=== PATIENT | male | born 1955 | race Caucasian/White ===

== ENCOUNTER → 2020-01-19 | Outpatient (CLI) | payer MEDICARE, OTHER ==
--- NOTE | 2020-01-19 09:09 | RADIOLOGY REPORT (SQ) ---
EXAM DESCRIPTION: U/S ABD AORTIC SCREENING IMAGES COMPLETED DATE/TIME: 01/19/2020 8:21 am REASON FOR STUDY: ENCOUNTER FOR SCREENING FOR CARDIOVASCULAR DISORDERS Z87.891 PERSONAL HISTORY OF NICOTINE DEPENDENCE Z87 PERSONAL HISTORY OF OTHER DISEASES AND CONDIT * DO NOT U COMPARISON: None. TECHNIQUE: Static and dynamic grayscale images acquired of the aorta and stored on PACs. Selected co jess Doppler and spectral images recorded. LIMITATIONS: None. FINDINGS: AORTIC CALIBER MAXIMAL PROXIMAL: 2.8 x 2.6 cm. MID: 2.3 x 2.4 cm. DISTAL: 2.7 x 2.5 cm. ILIAC DIAMETER RIGHT: 1.4 x 1.5 cm. LEFT: 1.2 x 1.3 cm. OTHER: Scattered calcified plaque throughout. IMPRESSION: No focal aneurysmal dilatation. See below for recommended follow-up. COMMENT: Aortic aneurysm imaging followup: 2.6-2.9 cm Every 5 years* *Based upon the Society for Vascular Surgery Guidelines: J Vasc Surg. 2009 Oct;50(4 Suppl):S2-49 *For aortas of maximum diameter of 2.6-2.9 cm meeting the criteria for AAA (?1.5 x proximal normal se gment) TECHNICAL DOCUMENTATION: JOB ID: [id number] 2010 [employer]- All Rights Reserved Reading location - IP/workstation name: [email or web address]
--- NOTE | 2020-01-19 10:12 | RADIOLOGY REPORT (SQ) ---
EXAM DESCRIPTION: CT LUNG CANCER SCREENING IMAGES COMPLETED DATE/TIME: 01/19/2020 8:12 am REASON FOR STUDY: Z87.891 PERSONAL HISTORY OF NICOTINE DEPENDENCE Z87.891 PERSONAL HISTORY OF NICOT INE DEPENDENCE Z87 PERSONAL HISTORY OF OTHER DISEASES AND CONDIT * DO NOT U Has the patient had a Chest CT scan within the past year? N Was the patient offered tobacco cessation counseling? Y Was the patient engaged in shared decision making for this test? Y Does the patient have signs or symptoms of Lung Cancer? N Is the patient a smoker? Y How many pack years? 58 How many years since quitting smoking? 0 Patients age: 70 COMPARISON: Chest x-ray dated 05/23/2013 TECHNIQUE: Low Dose CT scan performed of the chest without intravenous contrast for purposes of scre ening for lung cancer. Images reviewed with lung, soft tissue and bone windows. Reconstructed coron al and sagittal MPR images reviewed. All images stored on PACS. All CT scanners at this facility use dose modulation, iterative reconstruction, and/or weight based d osing when appropriate to reduce radiation dose to as low as reasonably achievable (ALARA). [facility]: Dose Right [facility]: CareDose [facility]: Dose Right [facility]: Teradose 4D [facility]: Smart Violin Memory RADIATION DOSE: CT Rad equipment meets quality standard of care and radiation dose reduction techniq ues were employed. CTDIvol: NaN mGy. DLP: 0 mGy-cm. mGy. . LIMITATIONS: No technical limitations. FINDINGS: LUNG NODULES: Description: Subpleural nodule in the right lower lobe. This is best demo nstrated on series 3, image 176. Size: 4.0 mm REMAINING LUNGS AND PLEURA: No pleural effusions or calcifications. No pneumothorax. No scarrin g or interstitial changes. HILAR AND MEDIASTINAL STRUCTURES: No identified masses. No abnormal nodes. HEART AND VASCULAR STRUCTURES: No aortic aneurysm. No pericardial effusion. No cardiac devices. CORONARY ARTERY CALCIFICATIONS: No significant calcifications. UPPER ABDOMEN: No significant findings. THYROID AND OTHER SOFT TISSUES: No masses. No adenopathy. BONES: No significant finding. OTHER: No other significant findings. IMPRESSION: BENIGN FINDINGS IN THE LUNGS. NO OTHER CLINICALLY SIGNIFICANT/POTENTIALLY CLINICALLY SIGNIFICANT FINDINGS LUNGRADS: LUNGRADS: 2 BENIGN APPEARANCE OR BEHAVIOR. NODULES WITH A VERY LOW LIKELIHOOD OF BECOMIN G A CLINICALLY ACTIVE CANCER DUE TO SIZE OR LACK OF GROWTH. MODIFIER: NONE. RECOMMENDATION: Continue annual screening with LDCT in 12 months. COMMENT: CRITERIA: Solid nodule(s): < 6 mm; new < 4 mm. Part solid nodule(s): < 6 mm total diameter on baseline screening. Non solid nodule(s) (GGN): < 20 mm OR ? 20 and unchanged or slowly growing. Category 3 or 4 nodules unchanged for ? 3 months. TECHNICAL DOCUMENTATION: JOB ID: [id number] Quality ID # [id number]: Final reports with documentation of one or more dose reduction techniques (e.g., Au tomated exposure control, adjustment of the mA and/or kV according to patient size, use of iterative reconstruction technique) 2010 [facility], [place] Rad[facility] Reading location - IP/workstation name: [email or web address]
== END ==
LOC: RAD 07:48
PROVIDERS: ATTEND Nurse Practitioner Adult Health
DX: Z12.2 Encounter for screening for malignant neoplasm of respiratory organs (principal); Z13.6 Encounter for screening for cardiovascular disorders; Z87.891 Personal history of nicotine dependence
CPT/HCPCS: 76706; G0297

== ENCOUNTER 2020-03-01 12:51 | Emergency (ER) | payer MEDICARE, OTHER ==
--- NOTE | 2020-03-01 13:25 | ER Document Report ---
ED Medical Screen (RME) - General Chief Complaint: Chest Pain Stated Complaint: CHEST PAIN Time Seen by Provider: 03/01/20 12:56 Primary Care Provider: KANA WONG NP-C [Primary Care Provider] - Follow up as needed Mode of Arrival: Ambulatory Information source: Patient Notes: Patient with right sided chest pain/epigastric pain. Radiates to right neck and straight through to back. Has been intermittent over the last few weeks, worse with food. Denies N/V/SOB. Denies hx of [place]. Exam: Lung sounds clear and equal. No pain with palpation to chest wall. I have greeted and performed a rapid initial assessment of this patient. A comprehensive ED assessment and evaluation of the patient, analysis of test results and completion of the medical decision making process will be conducted by additional ED providers. I have specifically instructed the patient or family members with the patient to immediately return to any nursing staff should anything change in the patient's condition or with their chief complaint. Past Medical History - Immunizations Hx Diphtheria, Pertussis, Tetanus Vaccination: Yes Physical Exam - Vital signs Vitals: Temp Pulse Resp BP Pulse Ox 98.0 F 90 16 158/81 H 98 03/01/20 13:08 03/01/20 13:08 03/01/20 13:08 03/01/20 13:08 03/01/20 13:08 Course - Vital Signs Vital signs: Temp Pulse Resp BP Pulse Ox 98.0 F 90 16 158/81 H 98 03/01/20 13:08 03/01/20 13:08 03/01/20 13:08 03/01/20 13:08 03/01/20 13:08 Doctor's Discharge - Discharge Referrals: KANA WONG NP-C [Primary Care Provider] - Follow up as needed
--- NOTE | 2020-03-01 13:48 | RADIOLOGY REPORT (SQ) ---
EXAM DESCRIPTION: CHEST 2 VIEWS IMAGES COMPLETED DATE/TIME: 03/01/2020 1:37 pm REASON FOR STUDY: chest pain COMPARISON: 05/23/2013 EXAM PARAMETERS: NUMBER OF VIEWS: two views TECHNIQUE: Digital Frontal and Lateral radiographic views of the chest acquired. RADIATION DOSE: NA LIMITATIONS: none FINDINGS: LUNGS AND PLEURA: Mild chronic interstitial changes. No acute infiltrate, effusion, or ma ss. MEDIASTINUM AND HILAR STRUCTURES: No masses or contour abnormalities. HEART AND VASCULAR STRUCTURES: Heart normal size. No evidence for failure. BONES: No acute findings. HARDWARE: None in the chest. OTHER: No other significant finding. IMPRESSION: Mild chronic lung changes with no acute cardiopulmonary findings. TECHNICAL DOCUMENTATION: JOB ID: [id number] 2010 [employer]- All Rights Reserved Reading location - IP/workstation name: [email or web address]
[2020-03-01 14:13] LABS: ABSOLUTE EOSINOPHILS # (AUTO) 0.2 10^3/uL (0.0-0.6); ABSOLUTE MONOCYTES (AUTO) 0.5 10^3/uL (0.1-1.4); ABSOLUTE NEUT (AUTO) 2.4 10^3/uL (1.7-8.2); BASOPHILS % (AUTO) 0.4 % (0-2); EOSINOPHILS % (AUTO) 3.9 % (0-6); HEMATOCRIT 40.6 % (37.9-51.0); LYMPHOCYTES % (AUTO) 38.9 % (13-45); MEAN CORPUSCULAR HEMOGLOBIN 29.6 pg (27.0-33.4); MEAN CORPUSCULAR HGB CONC 34.5 g/dL (32.0-36.0); MEAN CORPUSCULAR VOLUME 86 fl (80-97); MONOCYTES % (AUTO) 10.2 % (3-13); PLATELET COUNT 150 10^3/uL (150-450); RED BLOOD COUNT 4.74 10^6/uL (4.35-5.55); RED CELL DISTRIBUTION WIDTH 13.2 % (11.5-14.0); SEGMENTED NEUTROPHILS % (AUTO) 46.6 % (42-78); TOTAL CELLS COUNTED % (AUTO) 100 %; WHITE BLOOD COUNT 5.2 10^3/uL (4.0-10.5)
[2020-03-01 14:34] LABS: ALBUMIN 4.2 g/dL (3.5-5.0); ALKALINE PHOSPHATASE 80 U/L (38-126); ANION GAP 9 (5-19); ASPARTATE AMINO TRANSFERASE 32 U/L (17-59); BILIRUBIN,DIRECT 0.3 mg/dL (0.0-0.4); BILIRUBIN,TOTAL 0.8 mg/dL (0.2-1.3); BLOOD UREA NITROGEN 16 mg/dL (7-20); CALCIUM 9.6 mg/dL (8.4-10.2); CARBON DIOXIDE 28 mmol/L (22-30); CHLORIDE 102 mmol/L (98-107); GLUCOSE 119 mg/dL (75-110); POTASSIUM 4.1 mmol/L (3.6-5.0); TOTAL PROTEIN 6.9 g/dL (6.3-8.2)
--- NOTE | 2020-03-01 14:38 | RADIOLOGY REPORT (SQ) ---
EXAM DESCRIPTION: U/S ABDOMEN LIMITED W/O DOP IMAGES COMPLETED DATE/TIME: 03/01/2020 2:28 pm REASON FOR STUDY: chest pain/epigastric pain COMPARISON: None. TECHNIQUE: Dynamic and static grayscale images acquired of the abdomen and recorded on PACS. Additio nal selected color Doppler and spectral images recorded. LIMITATIONS: None. FINDINGS: PANCREAS: Not seen. LIVER: No masses. Echotexture normal. LIVER VASCULATURE: Normal directional flow of the main portal vein and hepatic veins. GALLBLADDER: No stones. Normal wall thickness. No pericholecystic fluid. ULTRASOUND-DETECTED DURANT'S SIGN: Negative. INTRAHEPATIC DUCTS AND COMMON DUCT: CBD and intrahepatic ducts normal caliber. No filling defects. AORTA: No aneurysm. RIGHT KIDNEY: Normal size, 12.5 cm. Normal echogenicity. No solid or suspicious masses. No hydroneph rosis. No calcifications. PERITONEAL AND RIGHT PLEURAL SPACE: No ascites or effusions. OTHER: No other significant findings. IMPRESSION: NORMAL RIGHT UPPER QUADRANT ULTRASOUND. TECHNICAL DOCUMENTATION: JOB ID: [id number] 2010 [employer]- All Rights Reserved Reading location - IP/workstation name: [email or web address]
[2020-03-01 17:09] LABS: APPEARANCE,URINE CLEAR; BILIRUBIN,URINE NEGATIVE (NEGATIVE); COLOR,URINE STRAW; GLUCOSE, URINE NEGATIVE (NEGATIVE); KETONES,URINE NEGATIVE (NEGATIVE); LEUKOCYTE ESTERASE,URINE NEGATIVE (NEGATIVE); NITRITE,URINE NEGATIVE (NEGATIVE); PROTEIN,URINE NEGATIVE (NEGATIVE); URINE SPECIFIC GRAVITY 1.005; UROBILINOGEN,URINE NEGATIVE mg/dL (<2.0)
--- NOTE | 2020-03-01 19:45 | ER Document Report ---
ED Cardiac - General Mode of Arrival: Ambulatory <STEVEN DAO - Last Filed: 03/01/20 20:09> <LOIS JEFFRIES - Last Filed: 03/01/20 20:49> - General Chief Complaint: Chest Pain Stated Complaint: CHEST PAIN Time Seen by Provider: 03/01/20 12:56 Primary Care Provider: KANA WONG NP-C [NO LOCAL MD] - Follow up as needed Notes: 64-year-old male with past medical history of hypertension, hyperlipidemia, anxiety presenting today with intermittent right-sided chest pain and right upper quadrant pain. He states the intermittent chest pain has occurred twice both of and after eating. States that the episodes last for approximately 30 minutes and feels like a squeezing sensation which ultimately relax. The pain will occasionally radiate up towards his neck into his back. He says he is taking Tums for this which is helped to expedite the relief of his symptoms. He also has some right-sided upper quadrant pain after eating. This pain is been intermittent for an unspecified amount of time. Worse in the last 2 weeks. He describes as more as of a dull ache. It is not sharp or stabbing. When the pain occurs he denies diaphoresis. He states he is flushed at times. He does have a history of breaking his sternum when he was in high school. He does not have a history of [place] or stroke. He takes a daily aspirin. He is not follow-up with a cylinder die machine helper. Is currently not a smoker. He quit 6 years ago. He occasionally has lower leg swelling. He states his legs are not swollen at this time. Has chest pressure when he is leaning forward. (STEVEN DAO) Past Medical History - General Information source: Patient - Social History Smoking Status: Unknown if Ever Smoked Family History: Other - Immunizations Hx Diphtheria, Pertussis, Tetanus Vaccination: Yes <STEVEN DAO - Last Filed: 03/01/20 20:09> Review of Systems - Review of Systems Constitutional: No symptoms reported EENT: No symptoms reported Cardiovascular: See HPI Respiratory: No symptoms reported Gastrointestinal: See HPI Genitourinary: No symptoms reported Male Genitourinary: No symptoms reported Musculoskeletal: No symptoms reported Skin: No symptoms reported Hematologic/Lymphatic: No symptoms reported Neurological/Psychological: No symptoms reported <STEVEN DAO - Last Filed: 03/01/20 20:09> Physical Exam - Vital signs Interpretation: Hypertensive. No: Tachycardic, Hypoxic <STEVEN DAO - Last Filed: 03/01/20 20:09> - Vital signs Vitals: Temp Pulse Resp BP Pulse Ox 98.0 F 90 16 158/81 H 98 03/01/20 13:08 03/01/20 13:08 03/01/20 13:08 03/01/20 13:08 03/01/20 13:08 - Notes Notes: Adult General: GENERAL: Alert, interacts well. No acute distress HEAD: Normocephalic, atraumatic EYES: Pupils equal, round and reactive to light. Extraocular movements intact. ENT: Airway patent. Nares patent. NECK: Full range of motion. Supple. Trachea midline. No lymphadenopathy. LUNGS: Clear to auscultation bilaterally, no wheezes, rales, or rhonchi. No respiratory distress. Nontender chest wall. HEART: Regular rate and rhythm. No murmurs, rubs or gallops. Few PVCs ABDOMEN: Soft, nontender. Obese. (-) [place] sign. Bowel sounds present in all 4 quadrants. No rebound, guarding or masses. GENITOURINARY: Deferred EXTREMITIES: Moves all 4 extremities spontaneously. No edema, normal radial and dorsal pedis pulses bilaterally. No cyanosis. BACK: Moves all extremities with full range of motion. NEUROLOGICAL: Alert and oriented x3. Normal speech. Strength 5/ 5 in all extremities. PSYCH: Normal affect, normal mood. SKIN: Warm, dry, normal turgor. No rashes or lesions noted. (STEVEN DAO) Course - Laboratory Result Diagrams: 03/01/20 13:45 03/01/20 13:45 <SYLWIASTEVEN - Last Filed: 03/01/20 20:09> - Laboratory Result Diagrams: 03/01/20 13:45 03/01/20 13:45 <LOIS JEFFRIES - Last Filed: 03/01/20 20:49> - Re-evaluation Re-evalutation: 03/01/20 19:46 History score 0 EKG score 0 Age score 2 Risk Factors score 3 Initial Troponin score 0 Patient's initial troponin was negative. He only has the right upper quadrant discomfort at this time. I am pending a second Troponin. His chest x-ray is negative. His EKG shows PVCs. He states he is never been diagnosed with this before. Has never seen a cylinder die machine helper. His RUQ ultrasound is normal. (STEVEN DAO) 03/01/20 20:47 Patient second troponin is negative. Patient states that he does not feel any better, but states that he does not feel any worse. Since second troponin is unremarkable, and has been multiple hours after his onset of discomfort, likelihood of this being a myocardial infarction is low. Patient is follow-up with Dr. Fabian. Advised him to take Pepcid, as he takes naproxen daily. (LOIS JEFFRIES) - Vital Signs Vital signs: Temp Pulse Resp BP Pulse Ox 98.0 F 90 11 L 142/70 H 96 03/01/20 13:08 03/01/20 13:08 03/01/20 20:01 03/01/20 20:01 03/01/20 20:01 - Laboratory Laboratory results interpreted by me: 03/01/20 13:45 Glucose 119 H - EKG Interpretation by Me Additional EKG results interpreted by me: 03/01/20 19:55 EKG shows sinus rhythm at 86 bpm. Also shows multiple ventricular PVCs. No ST segment elevations or depressions. Qtc of 450 (STEVEN DAO) Discharge <STEVEN DAO - Last Filed: 03/01/20 20:09> <LOIS JEFFRIES - Last Filed: 03/01/20 20:49> - Discharge Clinical Impression: RUQ abdominal pain Chest pain Qualifiers: Chest pain type: unspecified Qualified Code(s): R07.9 - Chest pain, unspecified Condition: Stable Disposition: HOME, SELF-CARE Instructions: Chest Pain of Unclear Cause ([facility]) Additional Instructions: EKG shows PVCs. He has had 2- troponins. Additional work-up is been unremarkable. Commend that you follow-up with a cylinder die machine helper. Also recommend follow-up with your primary care as soon as possible. Please return the emergency department for worsening symptoms or development of new symptoms. You can take Pepcid 20 mg twice a day to help protect your stomach. Referrals: ANALY FABIAN MD [ACTIVE PROVISIONAL STAFF] - Follow up in 3-5 days KANA WONG NP-C [NO LOCAL MD] - Follow up in 3-5 days
[2020-03-01] MEDS ORDERED: METOCLOPRAMIDE HCL ORAL SOLN 10 MG/10 ML UDCUP PO ONE (20:00)
[2020-03-01] MEDS ORDERED: LIDOCAINE 2% VISCOUS SOLN 15 ML UDCUP PO ONE (20:00)
[2020-03-01] MEDS ORDERED: MAG HYDROX/AL HYDROX/SIMETH SUSP 30 ML UDCUP PO ONE (20:00)
[2020-03-01 20:55] VITALS: BP 147/76
--- NOTE | 2020-03-01 21:23 | EKG REPORT ---
SEVERITY:- ABNORMAL ECG - SINUS RHYTHM MULTIPLE VENTRICULAR PREMATURE COMPLEXES : Confirmed by: Bev Eldridge MD 01-Mar-2020 21:23:08
== END 2020-03-01 20:55 | disposition home or self-care (01) ==
LOC: ER 12:51
DX: R10.11 Right upper quadrant pain (principal); R07.9 Chest pain, unspecified; I10 Essential (primary) hypertension; E78.5 Hyperlipidemia, unspecified; Z79.82 Long term (current) use of aspirin
CPT/HCPCS: 93005; 99285; 36415; 85025; 80053; 81001; 84484; 71046; 76705; 93010; J3490; A9270 ×2